=== PATIENT | male | born 1940 ===

== ENCOUNTER 2017-06-15 15:13 | Outpatient (CLI) | payer OTHER ==
[2017-06-18] MEDS ORDERED: LEVO-T150 MCG PO (13:46)
[2017-06-18] MEDS ORDERED: AVAPRO150 MG PO (13:46)
[2017-06-18] MEDS ORDERED: AMLODIPINE BESYL5 MG PO (13:47)
[2017-06-18] MEDS ORDERED: QUINAPRIL HCL40 MG PO (13:47)
[2017-06-18] MEDS ORDERED: CRESTOR20 MG PO (13:48)
[2017-06-18] MEDS ORDERED: HYDRODIURIL12.5 MG PO (13:48)
[2017-06-18] MEDS ORDERED: PROTONIX40 MG PO (13:48)
[2017-06-18] MEDS ORDERED: TOPROL XL100 MG PO (13:48)
== END 2017-06-15 15:35 | disposition home or self-care (01) ==
LOC: LAB 15:13
DX: C16.2 Malignant neoplasm of body of stomach (principal); Z85.028 Personal history of other malignant neoplasm of stomach; C16.9 Malignant neoplasm of stomach, unspecified

== ENCOUNTER 2017-06-24 05:34 | Day surgery (SDC) | payer OTHER ==
[~2017-06-24 05:34] MED LIST: AMLODIPINE BESYL5 MG PO; AVAPRO150 MG PO; CRESTOR20 MG PO; HYDRODIURIL12.5 MG PO; LEVO-T150 MCG PO; PROTONIX40 MG PO; QUINAPRIL HCL40 MG PO; TOPROL XL100 MG PO
== END 2017-06-24 13:30 | disposition home or self-care (01) ==
LOC: CIR.AMB 05:34
DX: C16.2 Malignant neoplasm of body of stomach (principal)
CPT/HCPCS: 36561; C1751

== ENCOUNTER 2017-11-04 15:52 | Inpatient (IN) | payer OTHER ==
[~2017-11-04] VITALS: Ht 175.3 cm; Wt 59.0 kg
[2017-11-23] MEDS ORDERED: CRESTOR20 MG PO (12:56)
[2017-11-23] MEDS ORDERED: AMLODIPINE BESYL5 MG PO (12:56)
[2017-11-23] MEDS ORDERED: TOPROL XL100 MG PO (12:56)
[2017-11-23] MEDS ORDERED: LEVO-T150 MCG PO (12:56)
[2017-11-23] MEDS ORDERED: AVAPRO150 MG PO (12:56)
[2017-11-23] MEDS ORDERED: HYDRODIURIL12.5 MG PO (12:56)
== END 2017-11-23 16:21 | disposition other institution (70) | DRG 641 ==
LOC: ER 15:52 → EDBD 15:55 → MEDI 19:04
PROVIDERS: Colon & Rectal Surgery
PROC: 3E0436Z Introduction of Nutritional Substance into Central Vein, Percutaneous Approach (ICD-10-PCS; 2017-11-04)
PROC: 02HV33Z Insertion of Infusion Device into Superior Vena Cava, Percutaneous Approach (ICD-10-PCS; 2017-11-04)
PROC: 0DHA3UZ Insertion of Feeding Device into Jejunum, Percutaneous Approach (ICD-10-PCS; principal; 2017-11-13 07:00)
PROC: 3E0F7GC Introduction of Other Therapeutic Substance into Respiratory Tract, Via Natural or Artificial Opening (ICD-10-PCS; 2017-11-15)
PROC: BW25Y0Z Computerized Tomography (CT Scan) of Chest, Abdomen and Pelvis using Other Contrast, Unenhanced and Enhanced (ICD-10-PCS; 2017-11-19)
DX: E44.0 Moderate protein-calorie malnutrition (principal); C16.8 Malignant neoplasm of overlapping sites of stomach; D68.8 Other specified coagulation defects; J98.11 Atelectasis; R13.19 Other dysphagia; E86.0 Dehydration; I10 Essential (primary) hypertension; E03.8 Other specified hypothyroidism; R31.0 Gross hematuria; E78.49 Other hyperlipidemia